=== PATIENT | male | born 1975 | race Caucasian/White ===

== ENCOUNTER 2018-11-23 12:18 | Emergency (ER) | payer OTHER ==
[~2018-11-23] VITALS: Ht 175.3 cm; Wt 89.4 kg
[2018-11-23] MEDS ORDERED: TELMISARTAN80 MG PO (12:29)
[2018-11-23] MEDS ORDERED: PROTECT CARDIO1 EAC1 PO (12:30)
[2018-11-23] MEDS ORDERED: CRESTOR10 MG PO (12:30)
[2018-11-23] MEDS ORDERED: NIFE60TA3 PO (12:30)
== END 2018-11-23 16:06 | disposition home or self-care (01) ==
LOC: ER 12:18
DX: M94.0 Chondrocostal junction syndrome [Tietze] (principal)